=== PATIENT | male | born 1990 | race Caucasian/White ===

== ENCOUNTER 2017-05-26 19:59 | Emergency (ER) | payer MEDICAID, OTHER ==
[~2017-05-26] VITALS: Ht 170.2 cm; Wt 123.0 kg
[2017-05-26] MEDS ORDERED: VISCOUS LIDOCAINE 2% 15 ML UDC PO ONE (22:15)
[2017-05-26] MEDS ORDERED: MAGNESIUM/ALUMINUM HYDROXIDE/SIMETHICONE 30ML UDC PO ONE (22:15)
[2017-05-26 23:30] LABS: BASOPHILS % 0.5 % (0.0-2.0); EOSINOPHILS % 0.4 % (0.0-5.0); HEMATOCRIT. 45.4 % (42.0-52.0); HEMOGLOBIN. 15.1 g/dL (14.0-18.0); LYMPHOCYTES % 17.2 % (20.0-50.0); MEAN CORPUSCULAR HEMOGLOBIN 28.4 pg (28.0-32.0); MEAN PLATELET VOLUME 9.4 fl (7.4-10.4); MONOCYTES % 6.7 % (2.0-8.0); NEUTROPHILS % 75.2 % (40.0-76.0); PLATELET 355 x1000/uL (130-400); RED BLOOD CELL COUNT 5.34 mill/uL (4.7-6.1)
[2017-05-26 23:35] LABS: INR 1.1; PROTHROMBIN TIME 11.1 sec (9.4-11.6)
[2017-05-26 23:37] LABS: CHLORIDE 105 mEq/L (98-107)
[2017-05-27 00:51] VITALS: BP 122/71
== END 2017-05-27 00:55 | disposition home or self-care (01) ==
LOC: ER 19:59
DX: R07.2 Precordial pain (principal)
CPT/HCPCS: 36415; 71045; 80053; 84484; 85025; 85610; 93005; 99285; Z7610

== ENCOUNTER 2019-02-07 12:37 | Emergency (ER) | payer OTHER ==
[~2019-02-07] VITALS: Ht 167.6 cm; Wt 112.0 kg
[2019-02-07] MEDS ORDERED: ONDANSETRON HCL 4MG TABLET PO ONE (14:45)
[2019-02-07] MEDS ORDERED: LIDOCAINE HCL 1% 20ML VIAL (Pyxis) INJ INFIL ONE (14:45)
[2019-02-07] MEDS ORDERED: CEFTRIAXONE SODIUM 250 MG/VIAL IM ONE (14:45)
[2019-02-07] MEDS ORDERED: METRONIDAZOLE 500MG TABLET PO ONE (14:45)
[2019-02-07] MEDS ORDERED: IBUPROFEN 800MG TABLET PO ONE (14:45)
[2019-02-07] MEDS ORDERED: AZITHROMYCIN 500 MG TABLET PO ONE (14:45)
[2019-02-07 14:49] LABS: CLARITY URINE CLEAR (CLEAR); COLOR URINE YELLOW (YELLOW); KETONES URINE NEGATIVE (NEGATIVE); LEUKOCYTE ESTERASE URINE TRACE (NEGATIVE); NITRITE URINE NEGATIVE (NEGATIVE); OCCULT BLOOD URINE NEGATIVE (NEGATIVE); PROTEIN URINE NEGATIVE (NEGATIVE); SPECIFIC GRAVITY URINE 1.024 (1.005-1.030); UROBILINOGEN URINE 0.2 E.U./dL (0.2-1.0)
[2019-02-07 16:46] VITALS: BP 133/80
== END 2019-02-07 16:50 | disposition home or self-care (01) ==
LOC: ER 12:37
DX: N50.812 Left testicular pain (principal); N45.1 Epididymitis
CPT/HCPCS: 76870; 81003; 87077; 87086; 93976; 96372; 99284; J0696; J3490; Q0162

== ENCOUNTER 2019-08-18 21:07 | Emergency (ER) | payer OTHER ==
[~2019-08-18] VITALS: Ht 167.6 cm; Wt 109.0 kg
[2019-08-18 21:27] VITALS: BP 160/100
== END 2019-08-18 23:31 | disposition home or self-care (01) ==
LOC: ER 21:33
DX: H11.001 Unspecified pterygium of right eye (principal)
CPT/HCPCS: 99281

== ENCOUNTER 2023-07-03 13:43 | Emergency (ER) | payer MEDICAID, OTHER ==
[~2023-07-03] VITALS: Ht 165.1 cm; Wt 129.0 kg
[2023-07-03 13:55] VITALS: O2SAT 100
[2023-07-03] MEDS ORDERED: DOXY100C5 MT (15:38)
[2023-07-03] MEDS: CEFTRIAXONE SODIUM 500MG VIAL IM ONE (16:00)
[2023-07-03] MEDS: DOXYCYCLINE HYCLATE 100MG CAPSULE PO ONE (16:00)
[2023-07-03 16:35] VITALS: BP 129/87; PULSE 78; RESP 16; TEMP 98.7
[2023-07-05 19:11] LABS: CHLAMYDIA TRACHOMATIS NAA Negative (Negative); NEISSERIA GONORRHOEAE NAA Negative (Negative)
== END 2023-07-03 16:36 | disposition home or self-care (01) ==
LOC: ER 13:43
DX: A64 Unspecified sexually transmitted disease (principal)
CPT/HCPCS: 87491; 87591; 96372; 99283; J0696; Z7610

== ENCOUNTER 2024-08-11 11:48 | Emergency (ER) | payer MEDICAID ==
[~2024-08-11] VITALS: Ht 170.2 cm; Wt 127.0 kg
[~2024-08-11 11:48] MED LIST: DOXY100C5 MT
[2024-08-11 12:05] VITALS: O2SAT 99
[2024-08-11] MEDS: CEFTRIAXONE SODIUM 1G VIAL IM ONE (12:30)
[2024-08-11] MEDS ORDERED: DOXY100C5 MT (12:33)
[2024-08-11] MEDS: LIDOCAINE HCL/PF 1% 10 MG/ML 5ML VIAL INFIL ONE (12:45)
[2024-08-11] MEDS: IBUPROFEN 400MG TABLET PO ONE (12:51)
[2024-08-11 13:04] VITALS: BP 163/81; PULSE 102; RESP 16; TEMP 37.7; O2SAT 96
[2024-08-11 13:55] LABS: CLARITY URINE CLEAR (CLEAR); COLOR URINE YELLOW (YELLOW); GLUCOSE URINE NEGATIVE (NEGATIVE); KETONES URINE TRACE (NEGATIVE); LEUKOCYTE ESTERASE URINE NEGATIVE (NEGATIVE); NITRITE URINE NEGATIVE (NEGATIVE); OCCULT BLOOD URINE NEGATIVE (NEGATIVE); PH URINE 5.5 (4.5-8.0); PROTEIN URINE 1+ (NEGATIVE); SPECIFIC GRAVITY URINE 1.021 (1.005-1.030)
[2024-08-11 14:17] LABS: MUCUS URINE TRACE /lpf (NONE/TRACE); SQUAMOUS EPITHELIAL CELL URINE 1+ /lpf (RARE/1+)
[2024-08-11 14:18] LABS: BACTERIA URINE TRACE; RBC URINE 0-2 /hpf (0-2)
[2024-08-11 14:19] LABS: WBC URINE 0-2 /hpf (0-2)
== END 2024-08-11 13:20 | disposition home or self-care (01) ==
LOC: ER 13:06
DX: Z11.3 Encounter for screening for infections with a predominantly sexual mode of transmission (principal); Z20.2 Contact with and (suspected) exposure to infections with a predominantly sexual mode of transmission
CPT/HCPCS: 99283; 87491; 87591; 81003; 96372; J0696; J2003